=== PATIENT | female | born 1970 | race Caucasian/White ===

== ENCOUNTER → 2020-05-30 | Day surgery (SDC) | payer BC, OTHER ==
[~2020-05-30] MED LIST: EDARBYCLOR 40-1 EACH PO; OMEPRAZOLE20 MG PO; PROPOFOL IV EMULSION 10 MG/ML 20 ML VIAL ONE; ZYRTEC10 MG PO
[2020-05-30 08:55] VITALS: BP 117/84
--- NOTE | 2020-05-30 09:14 | Operative Report ---
DATE OF PROCEDURE: 05/30/2020 SURGEON: Don Sinha MD PREOPERATIVE DIAGNOSIS: Chronic gastroesophageal reflux disease. POSTOPERATIVE DIAGNOSES: 1. Large hiatal hernia. 2. Severe distal esophagitis at the gastroesophageal junction. 3. Chronic gastroesophageal reflux disease. PREOPERATIVE INDICATION: Assess for upper GI mucosal disease. PROCEDURE: Esophagogastroduodenoscopy with distal esophageal biopsy x3 (CPT 63083). ANESTHESIA: Moderate sedation with IV propofol. ASSISTANTS: None. FLUID: As per anesthesia. EBL: Minimal. DRAINS: None. COMPLICATIONS: None. SPECIMENS: Distal esophageal biopsy x3 with cold forceps. GRAFTS: None. FINDINGS: 1. Large hiatal hernia. 2. Distal esophagitis at the GE junction. PROCEDURE IN DETAIL: The patient was brought to the endoscopy suite and sedated with IV propofol. A preprocedure pause was performed. An adult-sized endoscope was introduced to the oropharynx and guided to the 2nd portion of the duodenum. No duodenal or gastric abnormalities were noted. There was a large hiatal hernia with severe distal esophagitis at the GE junction. This was biopsied x3 with the cold forceps. Prior to removing the endoscope, the stomach was desufflated and the scope was removed. The patient tolerated the procedure well. Type of wound was type 1, clean. Don Sinha MD [facility] /[id number]
== END | disposition home or self-care (01) ==
LOC: ENDO 05:57
PROVIDERS: ATTEND Surgery
DX: K21.0 Gastro-esophageal reflux disease with esophagitis (principal); K44.9 Diaphragmatic hernia without obstruction or gangrene; I10 Essential (primary) hypertension; E66.9 Obesity, unspecified; R06.02 Shortness of breath; Z88.2 Allergy status to sulfonamides; Z01.810 Encounter for preprocedural cardiovascular examination; Z01.812 Encounter for preprocedural laboratory examination; Z11.59 Encounter for screening for other viral diseases; Z68.33 Body mass index [BMI] 33.0-33.9, adult
CPT/HCPCS: 43239; 81025; 87635; 88305; 93005; J2704

== ENCOUNTER 2020-06-13 09:03 | Inpatient (IN) | payer BC, OTHER ==
[2020-06-08 15:30] LABS: BASOPHILS % 0.2 % (0.0-1.0); EOSINOPHILS # (AUTO) 0.1 (0.0-0.4); EOSINOPHILS % 1.2 % (0.0-6.0); HEMATOCRIT 38.4 % (34.2-44.1); HEMOGLOBIN 13.2 g/dL (12.0-16.0); LYMPHOCYTES % 30.4 % (18.0-39.1); MEAN CORPUSCULAR HEMOGLOBIN 29.1 pg (28-32); MEAN CORPUSCULAR HGB CONC 34.4 g/dL (31-35); MEAN CORPUSCULAR VOLUME 84.6 fL (81-99); MONOCYTES # (AUTO) 0.5 (0.2-0.8); MONOCYTES % 7.4 % (4.4-11.3); NEUTROPHILS # (AUTO) 3.9 (2.1-6.9); NEUTROPHILS % 60.5 % (38.7-80.0); PLATELET COUNT 226 x10e3/uL (140-360); RED BLOOD COUNT 4.54 x10e6/uL (3.6-5.1); RED CELL DISTRIBUTION WIDTH 13.1 % (11.7-14.4)
[2020-06-08 15:46] LABS: ANION GAP 14.6 mmol/L (8-16); BLOOD UREA NITROGEN 18 mg/dL (7-26); BUN/CREATININE RATIO 23 (6-25); CALCIUM 9.5 mg/dL (8.4-10.2); CARBON DIOXIDE 26 mmol/L (22-29); CHLORIDE 102 mmol/L (98-107); CREATININE, SERUM 0.78 mg/dL (0.57-1.11); EST GLOMERULAR FILTRATION RATE > 60 ML/MIN (60-); GLUCOSE 95 mg/dL (74-118); POTASSIUM 3.6 mmol/L (3.5-5.1); SODIUM 139 mmol/L (136-145)
[~2020-06-13] VITALS: Ht 165.1 cm; Wt 95.3 kg
[~2020-06-13 09:03] MED LIST changes: +CEFAZOLIN SOD 1 GM/NS 50ML 100 ML IV ONE; -PROPOFOL IV EMULSION 10 MG/ML 20 ML VIAL ONE
[2020-06-13] MEDS ORDERED: BUPIVACAINE 0.25% 30ML SDV INJ ONE (09:07)
[2020-06-13] MEDS ORDERED: MULTIVITAMINS1 EAC7 PO (09:18)
[2020-06-13] MEDS ORDERED: SCOPOLAMINE 1.5 MG PATCH ONE (09:22)
[2020-06-13] MEDS ORDERED: ONDANSETRON HCL INJ 2MG/ML 2ML 2 MG/ML VIAL IV PRN (09:30)
[2020-06-13] MEDS ORDERED: SCOPOLAMINE 1.5 MG PATCH TOP SCH (09:30)
--- NOTE | 2020-06-13 11:08 | Operative Report ---
DATE OF PROCEDURE: 06/13/2020 SURGEON: Don Sinha MD PREOPERATIVE DIAGNOSES: 1. Hiatal hernia. 2. Chronic gastroesophageal reflux disease. POSTOPERATIVE DIAGNOSES: 1. Hiatal hernia. 2. Chronic gastroesophageal reflux disease. PREOPERATIVE INDICATION: Treat disease, prevent complications related to hiatal hernia and reflux disease. PROCEDURE: Laparoscopic hiatal hernia repair (CPT 34027). ANESTHESIA: General. IN FLIGHT REFUELING CRAFTSMAN: Levi Ruelas, operating room surgical technician (needed due to complexity of case). FLUIDS: 600 mL of crystalloid. ESTIMATED BLOOD LOSS: 20 mL. DRAINS: None. COMPLICATIONS: None. SPECIMENS: None. GRAFTS: None. FINDINGS: Moderate-sized hiatal hernia. PROCEDURE IN DETAIL: The patient was brought to the operating room and was intubated under general endotracheal anesthesia. She was sterilely prepped and draped in the usual fashion. A preprocedure pause was performed identifying the patient, use of preoperative antibiotics, intended procedure, and staff surgeon. Access was gained via a 5 mm left subcostal incision using a Veress needle. The abdomen was insufflated. Four additional trocars were placed in standard positions. The liver retractor was used to expose the stomach. I began the dissection with the Harmonic Scalpel by incising the gastrohepatic ligament via the pars flaccida technique and was able to mobilize and reduce a hiatal hernia from the right and left corine of the diaphragm, and was able to lyse adhesions into the thoracic cavity with the Harmonic Scalpel in order to get intraabdominal esophageal length. Once that was complete, I then repaired the hiatus with 2-0 Surgidac suture in interrupted fashion using the Endo Stitch device. Once that was completed, we then verified hemostasis, removed the liver retractor and desufflated the abdomen. Trocars were removed. Incision sites were closed with 4-0 Monocryl suture in a subcuticular fashion. Dermabond dressings were applied. A 0.25% bupivacaine was used both at the preperitoneal incision site. The patient tolerated the procedure well. Type of wound was type 1, clean. All surgical sponge and instrument counts were correct. Don Sinha MD [facility] /[id number]
--- NOTE | 2020-06-13 11:18 | Operative Report ---
DATE OF PROCEDURE: 06/13/2020 SURGEON: Don Sinha MD This is a self-pay portion for the sleeve. PREOPERATIVE DIAGNOSES: 1. Morbid obesity, BMI 33. 2. Hypertension. POSTOPERATIVE DIAGNOSES: 1. Morbid obesity, BMI 33. 2. Hypertension. PREOPERATIVE INDICATION: Treat disease, prevent complications related to comorbid conditions of obesity. PROCEDURES: Laparoscopic vertical sleeve gastrectomy. ANESTHESIA: General. BELT BUCKLE MAKER: Levi Ruelas, surgical forceps fabricator (needed due to complexity of case). FLUIDS: 600 mL of crystalloid. ESTIMATED BLOOD LOSS: 20 mL. DRAINS: None. COMPLICATIONS: None. SPECIMENS: Partial stomach. GRAFTS: None. FINDINGS: 1. Hiatal hernia. 2. Negative intraoperative leak test. PROCEDURE IN DETAIL: The patient was brought to the operating room and was intubated under general endotracheal anesthesia. She was sterilely prepped and draped in the usual fashion. A preprocedure pause was performed identifying the patient, use of perioperative antibiotics, intended procedure, and staff surgeon. Access was gained via a 5 mm left subcostal incision using a Veress needle. The abdomen was insufflated. Four additional trocars were placed in the standard positions. The liver retractor was used to expose the stomach and hiatus. After repairing the hiatal hernia. I mobilized the greater curvature of the stomach from about 3 cm proximal to the pyloric valve to the left corine of the diaphragm using the [place] LigaSure device. I then had anesthesia, inserted a 32-Guyanese sizing bougie along the lesser curve of the stomach. The greater curvature of stomach was resected with five firings of a 60 mm purple load Anesivatronic stapling device. Hemoclips were applied on the staple line, where there were necessary for hemostasis. We then conducted intraoperative leak test. No leaks were identified. The 32-Guyanese bougie was removed. The specimen was removed through the right periumbilical port site. The port site was closed with 0 Vicryl suture using a Wil Castillo technique. We then verified hemostasis, removed the liver retractor and desufflated the abdomen. The trocars were removed. Incision sites were closed with 4-0 Monocryl suture in a subcuticular fashion. Dermabond dressings were applied. A 0.25% bupivacaine was used both at the preperitoneal incision sites. The patient tolerated the procedure well. Type of wound was type 2, clean, contaminated. All surgical sponge and instrument counts were correct. MD DARRIUS Lewis/JACKYL /[id number]
[2020-06-13] MEDS ORDERED: ONDANSETRON HCL INJ 2MG/ML 2ML 2 MG/ML VIAL ONE ×2 (11:39→14:05)
[2020-06-13] MEDS ORDERED: PROMETHAZINE HCL (IM) 25 MG/ML VIAL ONE (11:39)
[2020-06-13] MEDS ORDERED: FENTANYL CITRATE/PF 100MCG/2 ML INJ ONE (11:46)
[2020-06-13] MEDS ORDERED: HYDRALAZINE HCL 20 MG/ML VIAL ONE (12:04)
[2020-06-13 13:30] VITALS: BP 138/90
[2020-06-13] MEDS ORDERED: ETOMIDATE 2 MG/ML 10 ML INJ IV ONE (14:05)
[2020-06-13] MEDS ORDERED: DEXAMETHASONE SOD PHOS INJ 4 MG/ML VIAL ONE (14:05)
[2020-06-13] MEDS ORDERED: PROPOFOL IV EMULSION 10 MG/ML 20 ML VIAL ONE (14:05)
[2020-06-13] MEDS ORDERED: ACETAMINOPHEN 1000 MG/100 ML IV ONE (14:05)
[2020-06-13] MEDS ORDERED: ROCURONIUM BROMIDE 10 MG/ML 5ML VIAL IV ONE (14:05)
[2020-06-13] MEDS ORDERED: LIDOCAINE HCL 2% LOCAL INJ 5 ML SDV VIAL INJ ONE (14:05)
[2020-06-13] MEDS ORDERED: NEOSTIGMINE 1 MG/ML 10ML VIAL ONE (14:05)
[2020-06-13] MEDS ORDERED: GLYCOPYRROLATE INJ 0.2 MG/ML VIAL ONE (14:05)
[2020-06-13] MEDS ORDERED: SEVOFLURANE INHAL SOLN 250 ML PEN BTL ONE (14:05)
[2020-06-13] MEDS: MORPHINE SULFATE 2 MG/ML SYR 1ML IV PRN ×2 (14:40→19:13)
[2020-06-13] MEDS: SODIUM CHLORIDE 0.9% 1000ML 1,000 ML IV SCH ×2 (14:40→23:52)
[2020-06-13 15:51] VITALS: BP 136/99
[2020-06-13] MEDS ORDERED: PROMETHAZINE 12.5MG/ NACL 0.9% 12.5 MG/50 ML BAG IV PRN (16:30)
--- NOTE | 2020-06-13 17:06 | History and Physical ---
CHIEF COMPLAINT: "I had weight loss surgery." HISTORY OF PRESENT ILLNESS: This is a 49-year-old white woman, who was admitted to [facility] with diagnosis of obesity, BMI 35, that was complicating underlying hypertension as well as possible sleep apnea. The patient's states the patient snores considerably at night. The patient states she has never undergone an overnight sleep study to confirm the severity of the sleep apnea. The patient also has severe GERD, secondary to hiatal hernia. Today, the patient was seen by her Bariatric Surgeon, namely Dr. Onesimo Orosco who performed successful laparoscopic hiatal hernia repair as well as laparoscopic vertical sleeve gastrectomy. The patient at this time states she has extreme nausea. She also had a couple of episodes of vomiting. The patient denies any pain. REVIEW OF SYSTEMS: GENERAL: The patient states she lost 10 pounds prior to surgery intentionally. No fever or chills. HEENT: No headaches. No visual changes. CARDIOVASCULAR/RESPIRATORY: No chest pain. No short cough. GI: Complains of nausea and vomiting since surgery. No diarrhea. : Linton catheter removed. NEUROMUSCULAR: No limb weakness or numbness. ALLERGIES: SULFA ANTIBIOTICS. HOME MEDICATIONS: 1. Azilsartan/chlorthalidone 40/12.5 mg once daily. 2. Zyrtec 10 mg at bedtime. 3. Multivitamin daily. 4. Omeprazole 20 mg daily. FAMILY HISTORY: Mother of complications, secondary to fatty liver induced cirrhosis. SOCIAL HISTORY: The patient is , lives with . 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 Denies any tobacco use. The patient drinks alcohol socially. SURGICAL HISTORY: 1. Laparoscopic vertical sleeve gastrectomy today. 2. Laparoscopic hiatal hernia repair today. 3. Urine ablation. 4. Bladder suspension surgery. 5. Bilateral tubal ligation. PHYSICAL EXAMINATION: GENERAL: She is awake, alert, fully oriented, in no distress, very pleasant, cooperative on exam. VITAL SIGNS: Height 5 feet 5 inches, weighs 210 pounds, BMI 35. Blood pressure is 136/98, pulse 96, respiratory rate 18, oxygen saturation 98% on room air, and temperature 98.2. INTEGUMENT: Skin is warm and dry. No pallor, jaundice, diaphoresis. HEENT: Anicteric sclerae. Moist mucous membranes. NECK: Supple. CARDIOVASCULAR: Tachycardic, rate and rhythm. LUNGS: No rales. No rhonchi or wheezes. ABDOMEN: Soft. No bowel sounds auscultated. The patient's laparoscopic incisional wounds are clean, dry, and intact. No evidence of drainage or erythema. EXTREMITIES: No edema or deformity. She is currently wearing a sequential compression devices in her lower legs. NEUROLOGIC: Intact. No gross deficits appreciated. DIAGNOSES: 1. Obesity, BMI 35, complicating underlying hypertension. 2. Hypertensive heart disease. 3. Status post laparoscopic sleeve gastrectomy. 4. Status post laparoscopic hiatal hernia repair. 5. Obstructive sleep apnea, likely. PLAN: 1. We will discontinue ondansetron and prescribe and order promethazine 12.5 mg intravenous every 6 hours p.r.n. nausea, vomiting. 2. Continue intravenous fluids. 3. Restart home medications, namely the azilsartan/chlorthalidone for blood pressure control. 4. Start enoxaparin subcutaneous twice a day for deep venous thrombosis prophylaxis. 5. Encourage incentive spirometer usage to prevent atelectasis. I would like to thank, Dr. Sinha for involving me in the care of this patient. I spent 40 minutes in the care of this patient. MD ROSI Zavala/DANIEL /[id number] MTDD
--- NOTE | 2020-06-13 17:50 | NUR ---
Nutrition Screen Note RD Recommendation for Physician: -Recommend advancing to bariatric diet when medically appropriate Plan of Care: RD following, monitoring for tolerance and adequacy Nutrition reason for involvement: consult bariatric diet education Primary Diagnose(s): morbid obesity and hiatal hernia PMH: HTN, TMJ and reflux Ht: 65 in Wt:210 lb BMI: 34.9 kg/m2 IBW: [address] Assessment: (06/13/20) Chart reviewed. Labs and meds reviewed. RD received consult for bariatric diet education. Pt is a 49 year old female admitted with morbid obesity and hiatal hernia. Pt had laparoscopic vertical sleeve gastrectomy surgery and laparoscopic hiatal hernia repair procedure today. Pt is currently NPO. Pt reports no loss of appetite prior to admission. MD note indicates patient stated she lost 10 pounds prior to surgery intentionally. Pt reports nausea at this time. Pt was not interested in verbal education at time of visit and stated she will read bariatric diet education materials provided. Encouraged pt to contact RD if she has questions. Will continue to monitor. Current Diet: NPO Malnutrition Evaluation (06/13/20) The patient does not meet criteria for a specified degree of malnutrition at this time. Will re-evaluate at follow-up as appropriate. Diet Education Needs Assessment: Pt was not interested in verbal education at time of visit and stated she will read bariatric diet education materials provided. Encouraged pt to contact RD if she has questions Nutrition Care Level: low Signed: Ama Landeros, RD, LD
--- NOTE | 2020-06-13 18:54 | NUR ---
WALKING ROUNDS PERFORMED, RECEIVED PT LAYING SEMI FOWLERS IN BED, AAOX3, RR EVEN AND NON-LABORED, ON ROOM AIR. PT REPORTS NAUSEA AND PAIN AT THIS TIME. LEFT PT LAYING SEMI FOWLERS IN BED, BED IN LOW LOCKED POSITION, SIDE RAILS UPX2, CALL LIGHT AND PHONE WITHIN REACH.
--- NOTE | 2020-06-13 19:25 | NUR ---
PT AMBULATING IN [facility] WITH STEADY GAIT NOTED.
[2020-06-13 20:00] VITALS: BP 149/108
[2020-06-13] MEDS: ENOXAPARIN SOD INJ 40 MG/0.4 ML SYR SC SCH (20:37)
[2020-06-13] MEDS: PROMETHAZINE 12.5MG/ NACL 0.9% 50 ML IV PRN (20:52)
--- NOTE | 2020-06-13 20:52 | NUR ---
SPOKE WITH MD PERRY CONCERNING PT REPORTS OF EXTREME HEADACHE FROM MORPHINE AND ELEVATED BP. NEW ORDERS RECEIVED.
[2020-06-13] MEDS ORDERED: PANTOPRAZOLE SOD 40 MG TABEC PO PRN (21:00)
[2020-06-13] MEDS ORDERED: LORATADINE 10 MG TAB PO PRN (21:00)
[2020-06-13] MEDS: HYDROCODONE/APAP 7.5MG-325MG 1 EA TAB PO PRN (21:14)
[2020-06-13 21:23] VITALS: BP 149/108
[2020-06-13] MEDS ORDERED: LOSARTAN POTASSIUM 100 MG TAB PO ONE (21:45)
[2020-06-14] VITALS: BP 150/86
[2020-06-14 04:00] VITALS: BP 149/94
[2020-06-14] MEDS: HYDROCODONE/APAP 7.5MG-325MG 1 EA TAB PO PRN (05:27)
[2020-06-14] MEDS: PROMETHAZINE 12.5MG/ NACL 0.9% 50 ML IV PRN (05:27)
[2020-06-14 05:34] LABS: BASOPHILS % 0.1 % (0.0-1.0); HEMATOCRIT 36.6 % (34.2-44.1); HEMOGLOBIN 12.4 g/dL (12.0-16.0); LYMPHOCYTES # (AUTO) 1.7 (1.0-3.2); LYMPHOCYTES % 17.2 % (18.0-39.1); MEAN CORPUSCULAR HEMOGLOBIN 28.8 pg (28-32); MEAN CORPUSCULAR HGB CONC 33.9 g/dL (31-35); MEAN CORPUSCULAR VOLUME 85.1 fL (81-99); MONOCYTES # (AUTO) 0.6 (0.2-0.8); NEUTROPHILS # (AUTO) 7.4 (2.1-6.9); NEUTROPHILS % 76.1 % (38.7-80.0); PLATELET COUNT 226 x10e3/uL (140-360); RED CELL DISTRIBUTION WIDTH 13.2 % (11.7-14.4)
[2020-06-14 06:03] LABS: ALANINE AMINOTRANSFERASE 42 IU/L (0-55); ALBUMIN 3.7 g/dL (3.5-5.0); ALBUMIN/GLOBULIN RATIO 1.2 (0.8-2.0); ALKALINE PHOSPHATASE 51 IU/L (40-150); ANION GAP 13.3 mmol/L (8-16); BLOOD UREA NITROGEN 10 mg/dL (7-26); BUN/CREATININE RATIO 13 (6-25); CALCIUM 8.7 mg/dL (8.4-10.2); CARBON DIOXIDE 24 mmol/L (22-29); CHLORIDE 104 mmol/L (98-107); CREATININE, SERUM 0.75 mg/dL (0.57-1.11); EST GLOMERULAR FILTRATION RATE > 60 ML/MIN (60-); GLUCOSE 100 mg/dL (74-118); PHOSPHORUS 3.3 MG/DL (2.3-4.7); POTASSIUM 3.3 mmol/L (3.5-5.1); SODIUM 138 mmol/L (136-145)
[2020-06-14] MEDS ORDERED: HYDROCODONE/APAP 7.5MG-325MG 1 EA TAB PO PRN (06:30)
--- NOTE | 2020-06-14 07:15 | NUR ---
ASSUMED CARE. AAOX3. ACYANOTIC. RESTING IN BED. NO DISTRESS NOTED. CALL LIGHT IN REACH. SIDE RAILS UP X2. BED LOW AND LOCKED.
[2020-06-14 08:00] VITALS: BP 141/95
[2020-06-14] MEDS: ENOXAPARIN SOD INJ 40 MG/0.4 ML SYR SC SCH (08:12)
[2020-06-14] MEDS ORDERED: POTASSIUM CHLORIDE 10MEQ EA PO SCH (08:30)
[2020-06-14 08:38] VITALS: BP 141/95
--- NOTE | 2020-06-14 08:39 | NUR ---
Progress Note S: No major complaints O: AF, VSS General- no acute distress Abdomen- soft, incisions clean/dry/intact A/P: POD 1, s/p Lap hiatal hernia repair with lap sleeve gastrectomy -Clears, ambulate, IS, OOB to chair -DC Home -F/u in 1-2 weeks
[2020-06-14] MEDS ORDERED: MULTIVITAMINS/MINERALS TAB PO SCH (09:00)
--- NOTE | 2020-06-14 09:09 | Discharge Summary ---
ADMIT DIAGNOSES: 1. Obesity, BMI 35, complicating underlying hypertension and sleep apnea. 2. Hiatal hernia. 3. Hypertension. 4. Sleep apnea. DISCHARGE DIAGNOSES: 1. Status post laparoscopic vertical sleeve gastrectomy. 2. Status post laparoscopic hiatal hernia repair. 3. BMI 35 complicating underlying hypertension and sleep apnea. 4. Hypertensive heart disease. 5. Sleep apnea. HOSPITAL COURSE: A 49-year-old white woman, who was initially admitted to [facility] with diagnosis of obesity, BMI 35, with complicating underlying hypertension and sleep apnea. She was also admitted with diagnosis of symptomatic hiatal hernia. During hospitalization, she underwent successful laparoscopic vertical sleeve gastrectomy as well as hiatal hernia repair. This surgery was performed by Dr. Don Sinha. The patient tolerated surgery quite well. Prior to discharge, the patient was tolerating a liquid diet. CONDITION ON DISCHARGE: Stable. DISCHARGE MEDICATIONS: 1. Azilsartan/chlorthalidone 40/12.5 once daily. 2. Cetirizine 10 mg daily as needed for allergic rhinitis symptoms. 3. Multivitamin once daily. 4. Omeprazole 20 mg once daily. 5. Tylenol No. 3 one pill every 4 hours p.r.n. pain, 30 prescribed. No refills. 6. Zofran 4 mg one tablet every 6 hours p.r.n. nausea and vomiting, 20 prescribed. No refills. FOLLOWUP INSTRUCTIONS: The patient instructed to follow up with Don Sinha in one week and with her primary care physician in 2 weeks. MD ROSI Zavala/DANIEL /[id number] cc: Don Sinha MD
== END 2020-06-14 10:12 | disposition home or self-care (01) | DRG 328 ==
LOC: OR 09:03 → PACU V 10:54 → MED/SURG 13:24
PROVIDERS: ADMIT Internal Medicine; ATTEND Internal Medicine
PROC: 0BQT4ZZ Repair Diaphragm, Percutaneous Endoscopic Approach (ICD-10-PCS; principal; 2020-06-13 10:30)
PROC: 0DB64Z3 Excision of Stomach, Percutaneous Endoscopic Approach, Vertical (ICD-10-PCS; 2020-06-13 10:30)
DX: K21.9 Gastro-esophageal reflux disease without esophagitis (principal); K44.9 Diaphragmatic hernia without obstruction or gangrene; E66.01 Morbid (severe) obesity due to excess calories; I11.9 Hypertensive heart disease without heart failure; G47.30 Sleep apnea, unspecified; Z11.59 Encounter for screening for other viral diseases; Z68.34 Body mass index [BMI] 34.0-34.9, adult; Z87.891 Personal history of nicotine dependence; Z88.2 Allergy status to sulfonamides
CPT/HCPCS: 36415; 80048; 80053; 81025; 83735; 84100; 85025; J0360; J0690; J1100; J1650; J2001; J2270; J2405; J2550; J2710; J3010; J7030; U0002